=== PATIENT | female | born 1955 | race Caucasian/White ===

== ENCOUNTER 2017-08-06 21:41 | Emergency (ER) | payer OTHER ==
[~2017-08-06] VITALS: Ht 170.2 cm; Wt 72.6 kg
[~2017-08-06 21:41] MED LIST: TRAMADOL HCL50 MG ORAL; VALIUM5 MG ORAL
[2017-08-06 22:28] VITALS: BP 114/69
[2017-08-06] MEDS ORDERED: Surgicel 4in x 8in TOPIC ONE (23:30)
[2017-08-06] MEDS ORDERED: Tetanus/Diptheria/Pertussis Vaccine 0.5ml Syr IM ONE (23:45)
[2017-08-06] MEDS ORDERED: IBUPROFEN600 MG ORAL (23:47)
[2017-08-07 00:05] VITALS: BP 120/88
--- NOTE | 2017-08-09 09:08 | Emergency Room Report ---
History of Present Illness General Chief Complaint: Laceration Source: Patient Present Illness HPI Patient was using a cooking slicer utensil This was several hours ago essentially injuring the middle and fourth finger of the left hand As bleeding continued and she was not able to control with pressure patient presents to the ER Pain is 3/10 localized to the distal fingertip Patient denies any proximal hand pain denies any chest pain or short of breath Allergies: Coded Allergies: No Known Allergies (Unverified , 04/29/15) Patient History Past Medical History: see triage record Pertinent Family History: none Last Menstrual Period: NA Reviewed Nursing Documentation: PMH: Agreed, PSxH: Agreed Review of Systems All Other Systems: negative except mentioned in HPI Physical Exam Vital Signs Date Time Temp Pulse Resp B/P (MAP) Pulse Ox O2 Delivery O2 Flow Rate FiO2 08/06/17 22:09 97.9 88 18 114/69 98 Room Air Sp02 EP Interpretation: reviewed, normal General Appearance: well appearing, no apparent distress Head: normocephalic, atraumatic Eyes: bilateral eye PERRL, bilateral eye EOMI ENT: hearing grossly normal, normal pharynx, TMs + canals normal, uvula midline Musculoskeletal: other - Evaluation reveals distal fingertip amputation, it does involve small portion of the nail as well, active oozing of blood is noted , no obvious pulsatile hemorrhage, this is on the mid finger, the fourth finger has a very small area involved but no active bleeding is noted in that location Neurologic: alert, oriented x3 Skin: other - as above Lymphatic: no adenopathy Procedures Laceration/Wound Repair Progress The area in question has a skin avulsion/partial distal amputation, the area involved is approximately half centimeter. Given the appearance there is no area able to be sutured, and the patient requires pressure dressing. Given the amount of bleeding surgeon seal mesh dressing is applied to the fingertip, after this bulky dressing is applied with minimal pressure as well. This appears to control the bleeding well and patient tolerated the procedure well Medical Decision Making Diagnostic Impression: Primary Impression: skin avulsion Additional Impression: partial finger tip amputation ER Course Please refer to the intervention section for the dressing that was applied Patient tolerated the procedure well The area will require secondary healing and follow up closely with primary physician next 2-3 days Last Vital Signs Date Time Temp Pulse Resp B/P (MAP) Pulse Ox O2 Delivery O2 Flow Rate FiO2 08/07/17 00:05 97.9 86 18 120/88 99 Room Air 81 Status: improved Disposition: HOME, SELF-CARE Condition: Improved Scripts Ibuprofen* (MOTRIN*) 600 Mg Tablet 600 MG ORAL Q8H Y for For Pain, #20 TAB 0 Refills Prov: ANTONIO DING D.O. 08/06/17 Referrals: [facility],REFERRING (PCP) Patient Instructions: Deep Skin Avulsion Additional Instructions: Patient is provided with the discharge instructions notified to follow up with primary doctor in the next 2-3 days otherwise return to the er with any worsening symptoms. Please note that this report is being documented using [employer] technology. This can lead to erroneous entry secondary to incorrect interpretation by the dictating instrument. ANTONIO DING D.O. Aug 09, 2017 09:08
== END 2017-08-07 00:05 | disposition home or self-care (01) ==
LOC: EMR 22:40
DX: S61.313A Laceration without foreign body of left middle finger with damage to nail, initial encounter (principal); S61.205A Unspecified open wound of left ring finger without damage to nail, initial encounter; W27.8XXA Contact with other nonpowered hand tool, initial encounter; Y92.89 Other specified places as the place of occurrence of the external cause; Z23 Encounter for immunization
CPT/HCPCS: 90471; 90715; 99283